=== PATIENT | male | born 1985 | race American Indian/Alaskan Native ===

== ENCOUNTER 2019-06-27 04:55 | Emergency (ER) | payer SELFPAY ==
[2019-06-27] MEDS ORDERED: IBUPROFEN 800 MG TAB PO ONE (05:43)
[2019-06-27] MEDS ORDERED: CLINDAMYCIN 300 MG CAP PO ONE (05:43)
--- NOTE | 2019-06-27 05:43 | Emergency Department Report ---
HPI - General Chief Complaint: Sore Throat Time Seen by Provider: 06/27/19 05:32 - HPI HPI: This is a 34-year-old male here reports sore throat and clogged ear sensation and report that he thinks he has allergies. Reports a cough sometimes with itchy throat. Denies any fever or chills. Report nasal congestion and runny nose. Denies any nausea vomiting or diarrhea. Denies any abdominal or back pain. Denies any shortness of breath or chest pain. Denies any headache, blurred vision or dizziness. Sore throat is 6/10 worse with swallowing and feels sore. Denies taking any medication. Denies any drooling. ED Past Medical Hx - Past Medical History Previous Medical History?: No - Surgical History Past Surgical History?: No - Family History Family history: no significant - Social History Smoking Status: Never Smoker Substance Use Type: None - Medications Home Medications: Home Medications Medication Instructions Recorded Confirmed Last Taken Type Amoxicillin [Amoxicillin TAB] 875 mg PO BID 10 Days #20 tablet 06/27/19 Unknown Rx Cetirizine HCl [ZyrTEC] 10 mg PO QAM 14 Days #14 capsule 06/27/19 Unknown Rx Fluticasone [Flonase] 1 spray NS QDAY 14 Days #1 bottle 06/27/19 Unknown Rx Ibuprofen [Motrin] 800 mg PO Q8HR PRN #12 tablet 06/27/19 Unknown Rx ED Review of Systems ROS: Stated complaint: THROAT PAIN/CLOGGED EARS Other details as noted in HPI Constitutional: denies: chills, fever Eyes: denies: eye pain, eye discharge ENT: throat pain, congestion (Nasal congestion and runny nose), other (Clogged ear sensation). denies: ear pain, dental pain, hearing loss, epistaxis Respiratory: cough. denies: shortness of breath, SOB with exertion, SOB at rest, stridor, wheezing Cardiovascular: denies: chest pain, palpitations, dyspnea on exertion, edema, syncope Gastrointestinal: denies: abdominal pain, nausea, vomiting Musculoskeletal: denies: back pain, joint swelling, arthralgia Skin: denies: rash Neurological: denies: headache Physical Exam - Physical Exam Vital Signs: Vital Signs 06/27/19 05:00 Temperature 98.6 F Pulse Rate 85 Respiratory 18 Rate Blood Pressure 164/103 O2 Sat by Pulse 98 Oximetry General: This is a 34-year-old male well-nourished well-developed in no acute distress. Physical Exam: Head: Normocephalic atraumatic Ears:BIateral middle air congested without erythema and loss of bony landmarks. Jef EAC with normal exam. No mastoid bone tenderness. Mouth: Moist, mild pharyngeal erythema or exudate . UVULA midline and oral airways patent. No peritonsillar abscess. Tongue is normal Neck: Nontender to palpate, supple, normal range of motion. No adenopathy. No c- spine tenderness. Nose: Bilateral nasal mucosa congested/erythema with clear drainage. Maxillary and frontal sinuses non-tender to palpate. Eyes: Bilateral Sclerae and conjunctiva without injection. Bilateral pupils equal and reactive to light. Bilateral lids are normal. Normal accommodation.BEOMI Lungs: Clear to auscultate bilaterally, no rhonchi wheezes or rales. Normal work of breathing and no chest wall tenderness CV: S1, S2. Regular rate and rhythm negative murmur. Capillary refill is less than 3 seconds Abdomen: Nontender to palpation in all quadrants: No guarding or rebound tenderness. Positive bowel sounds in all quadrants Extremity: No clubbing, cyanosis or edema. +2 pulses in all extremities and no neurovascular compromise Skin: Clean dry and intact, no rashes or lesions Psych: Normal mood and behavior ED Course Vital Signs 06/27/19 05:00 Temperature 98.6 F Pulse Rate 85 Respiratory 18 Rate Blood Pressure 164/103 O2 Sat by Pulse 98 Oximetry Vital Signs 06/27/19 06/27/19 06/27/19 05:00 06:04 06:09 Temperature 98.6 F Pulse Rate 85 77 Respiratory 18 17 Rate Blood Pressure 164/103 Blood Pressure 191/108 158/108 [Right] O2 Sat by Pulse 98 100 Oximetry - Reevaluation(s) Reevaluation #1: 06/27/19 05:48 Patient received Motrin 800 mg in the emergency room and Rocephin 1 g IM. No adverse reaction in a stable Reevaluation #2: 06/27/19 06:14 Patient stable and in no acute distress. Blood pressure is elevated at 158/108 without any history of high blood pressure ED Medical Decision Making - Medical Decision Making This is a 34-year-old male here with sore throat and found to have sinusitis with pharyngitis. Patient was treated with antibiotic and pain medication emergency room which helped his pain. I discussed with patient his diagnosis, treatment plan and need to follow-up with primary care in 2 to 3 days and he voiced understanding. Patient discharged home in stable condition with prescription for amoxicillin and Motrin. Patient blood pressure is 158/108. He does not know if he has high blood pressure because he does not take his blood pressure. BMI is 32. I will give patient information on lifestyle modification and he will need to keep a blood pressure log to follow-up with primary care regarding elevated blood pressure in emergency room without any diagnosis of hypertension Critical care attestation.: If time is entered above; I have spent that time in minutes in the direct care of this critically ill patient, excluding procedure time. ED Disposition Clinical Impression: Elevated BP without diagnosis of hypertension Sinusitis Qualifiers: Sinusitis location: unspecified location Chronicity: acute Recurrence: non- recurrent Qualified Code(s): J01.90 - Acute sinusitis, unspecified Pharyngitis Qualifiers: Pharyngitis/tonsillitis etiology: unspecified etiology Qualified Code(s): J02.9 - Acute pharyngitis, unspecified Disposition: DC-01 TO HOME OR SELFCARE Is pt being admited?: No Does the pt Need Aspirin: No Condition: Stable Instructions: Pharyngitis (ED), Sinusitis (ED), Low Sodium Diet (ED), DASH Eating Plan (ED), Hypertension (ED), Heart Healthy Diet (ED), How to Take a Blood Pressure (ED) Additional Instructions: Please take antibiotic as prescribed Follow-up with primary care physician in 3-5 days Take Zyrtec, Flonase and amoxicillin for sinus infection. Take Motrin as prescribed for pain but take with food as this can cause irritation to stomach lining If your condition worsens to include difficulty breathing, swallowing, chest pain, nausea and vomiting and fever does not relief with Motrin please return to the emergency room SHELLI. Gargle with warm salt water and this will help to relieve sore throat Please increase her fluid intake Flushing nostrils out with nasal saline and this will help to relieve congestion. Please keep a log of your blood pressure on a daily basis and schedule an appointment with primary care for monitoring. See lifestyle modification and discharge instruction regarding diet and exercise Prescriptions: Amoxicillin [Amoxicillin TAB] 875 mg PO BID 10 Days #20 tablet Fluticasone [Flonase] 1 spray NS QDAY 14 Days #1 bottle Ibuprofen [Motrin] 800 mg PO Q8HR PRN #12 tablet PRN Reason: pain Cetirizine HCl [ZyrTEC] 10 mg PO QAM 14 Days #14 capsule Referrals: Follow-up, [facility] primary care [Other] - 3-5 Days Forms: Work/School Release Form(ED)
[2019-06-27] MEDS ORDERED: LIDOCAINE-MPF (1%) 10 MG/1 ML VIAL 5 ML INFILTRATI ONE (05:44)
[2019-06-27 06:09] VITALS: BP 158/108
== END 2019-06-27 06:24 | disposition home or self-care (01) ==
LOC: ED 04:55
DX: J02.9 Acute pharyngitis, unspecified (principal); R03.0 Elevated blood-pressure reading, without diagnosis of hypertension; J32.9 Chronic sinusitis, unspecified; Z79.899 Other long term (current) drug therapy
CPT/HCPCS: 96372; 99282; J0696